=== PATIENT | male | born 1975 | race Caucasian/White ===

== ENCOUNTER 2020-07-08 23:23 | Emergency (ER) | payer BC, OTHER ==
[~2020-07-08] VITALS: Ht 185.4 cm; Wt 136.1 kg
[2020-07-09 00:10] VITALS: BP_SYST 159
[2020-07-09 02:20] VITALS: BP_SYST 159
== END 2020-07-09 02:20 | disposition home or self-care (01) ==
LOC: SED 23:23
DX: J18.9 Pneumonia, unspecified organism (principal); Z20.828 Contact with and (suspected) exposure to other viral communicable diseases
CPT/HCPCS: 71045; 99284; C9803; U0003